=== PATIENT | male | born 1975 | race Caucasian/White ===

== ENCOUNTER 2019-06-19 08:36 | Emergency (ER) | payer OTHER ==
--- NOTE | 2019-06-19 08:49 | PDOC ---
History of Present Illness - General Chief Complaint: Pain Stated Complaint: RIGHT SHOULDER,RIGHT CHEST AND ABDOMINAL PAIN Time Seen by Provider: 06/19/19 08:49 - History of Present Illness Initial Comments: 06/19/19 09:24 Pt presents to the ED complaining of L shoulder pain, which has been chronic for more than one year, and q 4 day history of epigastric pain radiating to the left shoulder. Denies fever or vomiting, but does complain of nausea. States that pain is worse with eating "heavy meals". He us unable to describe the pain. Currently he has minimal pain. 06/19/19 10:15 Past History - Past Medical History Allergies/Adverse Reactions: Allergies Allergy/AdvReac Type Severity Reaction Status Date / Time No Known Allergies Allergy Verified 06/19/19 08:52 Home Medications: Ambulatory Orders Famotidine [Pepcid] 20 mg PO BID #60 tablet 06/19/19 Review of Systems - Review of Systems Able to Perform ROS?: Yes Is the patient limited Citizen [place] proficient: No Constitutional: No: Symptoms Reported, See HPI, Chills, Diaphoresis, Fever, Loss of Appetite, Malaise, Night Sweats, Weakness, Weight Stable, Unintentional Wgt. Loss, Unexplained wgt Loss, Other Respiratory: No: Symptoms reported, See HPI, Cough, Orthopnea, Shortness of Breath, SOB with Exertion, SOB at Rest, Stridor, Wheezing, Productive cough, Hemoptysis, Other Cardiac (ROS): No: Symptoms Reported, See HPI, Chest Pain, Edema, Irregular Heart Rate, Lightheadedness, Palpitations, Syncope, Chest Tightness, Other ABD/GI: Yes: Symptoms Reported, Nausea. No: See HPI, Abdominal Distended, Abd. Pain w/ defecation, Blood Streaked Bowels, Constipated, Diarrhea, Difficulty Swallowing, Poor Appetite, Poor Fluid Intake, Rectal Bleeding, Vomiting, Indigestion, Abdominal cramping, Tarry Stools, Other : No: Symptoms Reported, See HPI, Burning, Dysuria, Discharge, Frequency, Flank Pain, Hematuria, Incontinence, Pain, Urgency, Testicular Mass, Testicular Swelling, Lesions, Testicular Pain, Other Musculoskeletal: No: Symptoms Reported, See HPI, Back Pain, Gout, Joint Pain, Joint Swelling, Muscle Pain, Muscle Weakness, Neck Pain, Joint Stiffness, Other All Other Systems: Reviewed and Negative *Physical Exam - Physical Exam 06/19/19 10:25 gen: alert, NAD CV: rrr no m/r/g pulm: CTA b/l Abdomen: soft, non tender, nond distended without guarding or rebound Ext: No edema or tenderness Neuro: alert and oriented x 3, normal mood and affect, CN grossly intact, ambulatory with normal gait. ED Treatment Course - LABORATORY CBC & Chemistry Diagram: 06/19/19 09:25 06/19/19 09:25 Medical Decision Making - Medical Decision Making 06/19/19 10:27 Pt presents to the ED complaining of epigastric pain. Labs checked to evaluate for biliary disease and are negative. Will discharge home with follow up with internal medicine clinic. Discharge - Discharge Information Problems reviewed: Yes Clinical Impression/Diagnosis: Epigastric pain Condition: Good Disposition: HOME - Admission No - Follow up/Referral Referrals: Paulo Pardo MD [Staff Physician] - - Patient Discharge Instructions Patient Printed Discharge Instructions: DI for Epigastric Pain Additional Instructions: You came to the ED for nausea and epigastric pain. We did testing for the gallbladder and liver which was normal. I think the pain was caused by inflammation in the stomach--you should return to the ED for worsening pain. I have given you a referral to the internal medicine clinic. - Post Discharge Activity
[2019-06-19 08:53] VITALS: BP 151/97; PULSE 78; TEMP 98.1; BMI 36.5
[2019-06-19] MEDS ORDERED: MAG HYDROX/AL HYDROX/SIMETH -MYLANTA- ORAL SUSPENSION PO ONE (08:59)
[2019-06-19] MEDS ORDERED: FAMOTIDINE 20 MG TABLET PO ONE (08:59)
[2019-06-19] MEDS ORDERED: MAG HYDROX/AL HYDROX/SIMETH 30 ML UNIT-DOSE CUP ONE (09:01)
[2019-06-19] MEDS ORDERED: FAMOTIDINE 20 MG TABLET ONE (09:01)
[2019-06-19 09:44] LABS: BASO % 0.6 % (0-2.0); EOS % 1.4 % (0-4.5); HEMATOCRIT 48.1 % (35.4-49); HEMOGLOBIN 15.9 GM/dl (11.7-16.9); LYMPH % 35.5 % (8-40); MCH 30.4 pg (25.7-33.7); MCHC 33.1 g/dl (32.0-35.9); MEAN CELL VOLUME 91.7 fl (80-96); MEAN PLT VOLUME 9.2 fl (7.5-11.1); MONO % 7.9 % (3.8-10.2); NEUT % 54.6 % (42.8-82.8); PLATELET COUNT 253 K/MM3 (134-434); RBC 5.24 M/mm3 (4.00-5.60); RDW 12.4 % (11.9-15.9); WHITE BLOOD COUNT 6.1 K/mm3 (4.0-10.8)
[2019-06-19 09:52] LABS: ALBUMIN 4.3 g/dl (3.4-5.0); BILIRUBIN,TOTAL 0.7 mg/dl (0.2-1); CALCIUM 8.9 mg/dl (8.5-10); CREATININE 0.7 mg/dl (0.55-1.3); POTASSIUM 3.8 mmol/L (3.5-5.1); TOT PROT 7.5 g/dl (6.4-8.2)
== END 2019-06-19 10:40 | disposition home or self-care (01) ==
LOC: FER 08:36
DX: R10.13 Epigastric pain (principal)
CPT/HCPCS: 36415; 80053; 85025; 99283-25

== ENCOUNTER 2020-03-03 10:00 | Emergency (ER) | payer OTHER ==
[2020-03-03 10:06] VITALS: TEMP 98.2; BMI 35.4
--- NOTE | 2020-03-03 10:36 | PDOC ---
History of Present Illness - General Chief Complaint: Chest Pain Stated Complaint: CHEST PAIN Time Seen by Provider: 03/03/20 10:04 - History of Present Illness Initial Comments: 03/03/20 11:06 44yo male with pmhx of gerd, without a pmd presents for a month of R sided cp. Pt states his R parasternal region hurts. 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 Pt denies pleuritic cp. Denies assoc sob. States he does sometimes feel a burning sensation and nausea coming up his chest. Pt denies leg swelling, calf cramping. Pt denies recent travel. Pt states he has been taking tylenol at night, which has helped his pain. Pt denies v/d. No abd pain. No urinary complaints. No back pain. No assoc with food with the pain. Pt with reproducible anterior right chest wall pain that hurts when palpated. No rash. Past History - Medical History Allergies/Adverse Reactions: Allergies Allergy/AdvReac Type Severity Reaction Status Date / Time No Known Allergies Allergy Verified 03/03/20 10:02 Home Medications: Ambulatory Orders NK [No Known Home Medication] 03/03/20 COPD: No GI Disorders: Yes (acid reflux) - Psycho-Social/Smoking History Smoking History: Never smoked Have you smoked in the past 12 months: No Information on smoking cessation initiated: No - Substance Abuse Hx (Audit-C & DAST Scrn) How often the patient has a drink containing alcohol: Never Score: In Men: 4 or > Positive; In Women: 3 or > Positive: 0 Screen Result (Pos requires Nsg. Audit-10AR): Negative In the last yr the pt used illegal drug/Rx for NonMed reason: No Score: Yes response is considered Positive: 0 Screen Result (Positive result requires Nsg. DAST-10): Negative Review of Systems - Review of Systems Able to Perform ROS?: Yes Is the patient limited [place] proficient: No Constitutional: No: Chills, Fever HEENTM: No: Nose Congestion, Throat Pain Respiratory: No: Cough, Shortness of Breath Cardiac (ROS): Yes: Chest Pain. No: Edema, Lightheadedness, Palpitations, Syncope, Chest Tightness ABD/GI: Yes: Nausea, Other (epigastric burnin). No: Diarrhea, Vomiting, Abdomi nal cramping : No: Burning, Dysuria Musculoskeletal: No: Back Pain Integumentary: No: Rash Neurological: No: Headache, Numbness, Paresthesia All Other Systems: Reviewed and Negative *Physical Exam - Vital Signs Last Vital Signs Temp Pulse Resp BP Pulse Ox 98.2 F 67 18 128/83 99 03/03/20 10:00 03/03/20 10:00 03/03/20 10:00 03/03/20 10:24 03/03/20 10:00 - Physical Exam General Appearance: Yes: Nourished, Appropriately Dressed. No: Apparent Distress HEENT: positive: EOMI, Normal Voice Neck: positive: Supple Respiratory/Chest: positive: Chest Tender (R parasternal anterior chest wall ttp that reproduces the pain), Lungs Clear, Normal Breath Sounds. negative: Re spiratory Distress Cardiovascular: positive: Regular Rhythm, Regular Rate, S1, S2. negative: Edema Gastrointestinal/Abdominal: positive: Soft, Other (no epigastric ttp). negative: Guarding, Rebound, Tenderness Male Genitalia: negative: CVAT Musculoskeletal: positive: Normal Inspection Extremity: positive: Normal Inspection, Normal Range of Motion, Other (ambulatory in the ER with a steady gait). negative: Swelling, Calf Tenderness Integumentary: positive: Normal Color, Dry, Warm. negative: Rash Neurologic: positive: Fully Oriented, Alert, Normal Mood/Affect, Normal Response Heart Score/ECG Review - ECG Intrepretation Comment:: 03/03/20 11:13 sinus at 68, nl axis, nl interval, t wave inversions III which are nonspecific, no acute st/t wave findings ED Treatment Course - LABORATORY CBC & Chemistry Diagram: 03/03/20 10:45 03/03/20 10:45 Medical Decision Making - Medical Decision Making 03/03/20 11:15 a/p: 44yo male with atypical R sided anterior chest wall ttp and epigastric burning -suspect gerd and MSK pain -however, pt does not have a doctor, does not follow up for routine eval -1m of the pain -will send labs, ekg, cxr, trop x2 -will medicate with toradol for anterior chest wall pain and GI meds -will monitor and reassess 03/03/20 11:24 trop neg labs reviewed and stable 03/03/20 11:26 cxr clear 03/03/20 12:21 pt states he feels better discussed labs, xray and ekg pt states pain improved after meds pending repeat trop, if trop neg then stable for dc to home 03/03/20 14:46 repeat trop neg stable for dc to home Discharge - Discharge Information Problems reviewed: Yes Clinical Impression/Diagnosis: Chest pain Condition: Stable Disposition: HOME - Admission No - Follow up/Referral Referrals: Paulo Pardo MD [Staff Physician] - - Patient Discharge Instructions Patient Printed Discharge Instructions: DI for Atypical Chest Pain Additional Instructions: Please take tylenol or motrin as needed for pain. Please make an appointment to see your PMD this week. Please return to the ER with any further concerns or complaints. - Post Discharge Activity
[2020-03-03] MEDS ORDERED: SODIUM CHLORIDE 0.9% 1000 ML INFUS.BAG IV ONE (10:37)
[2020-03-03] MEDS ORDERED: MAG HYDROX/AL HYDROX/SIMETH 30 ML UNIT-DOSE CUP PO ONE (10:37)
[2020-03-03] MEDS ORDERED: KETOROLAC TROMETHAMINE 15 MG/ML VIAL IVPUSH ONE (10:37)
[2020-03-03] MEDS ORDERED: ONDANSETRON 4 MG/2 ML VIAL IVPUSH ONE (10:37)
[2020-03-03] MEDS ORDERED: MAG HYDROX/AL HYDROX/SIMETH 30 ML UNIT-DOSE CUP ONE (10:40)
[2020-03-03] MEDS ORDERED: ONDANSETRON 4 MG/2 ML VIAL ONE (10:40)
[2020-03-03] MEDS ORDERED: KETOROLAC TROMETHAMINE 15 MG/ML VIAL ONE (10:40)
[2020-03-03 11:11] LABS: BASO % 3.1 % (0-2.0); EOS % 0.9 % (0-4.5); HEMATOCRIT 48.6 % (35.4-49); HEMOGLOBIN 16.1 GM/dl (11.7-16.9); LYMPH % 26.1 % (8-40); MCH 30.2 pg (25.7-33.7); MCHC 33.1 g/dl (32.0-35.9); MEAN CELL VOLUME 91.4 fl (80-96); MEAN PLT VOLUME 8.5 fl (7.5-11.1); MONO % 6.5 % (3.8-10.2); NEUT % 63.4 % (42.8-82.8); PLATELET COUNT 280 K/MM3 (134-434); RBC 5.32 M/mm3 (4.00-5.60); RDW 11.8 % (11.9-15.9); WHITE BLOOD COUNT 7.5 K/mm3 (4.0-10.8)
[2020-03-03 11:12] LABS: ALBUMIN 4.2 g/dl (3.4-5.0); BILIRUBIN,TOTAL 0.7 mg/dl (0.2-1); CALCIUM 9.2 mg/dl (8.5-10); CREATININE 0.8 mg/dl (0.55-1.3); POTASSIUM 4.2 mmol/L (3.5-5.1); TOT PROT 7.5 g/dl (6.4-8.2)
[2020-03-03 11:17] LABS: INR 1.14 (0.82-1.09); PROTHROMBIN TIME (PATIENT) 12.7 SEC (10.2-13.0)
[2020-03-03 15:02] VITALS: BP 123/70; PULSE 72
--- NOTE | 2020-03-03 18:53 | EKG ---
Test Reason : Blood Pressure : / mmHG Vent. Rate : 068 BPM Atrial Rate : 068 BPM P-R Int : 140 ms QRS Dur : 094 ms QT Int : 390 ms P-R-T Axes : 007 023 003 degrees QTc Int : 414 ms NORMAL SINUS RHYTHM LATERAL INFARCT POSTERIOR INFARCT ABNORMAL ECG Confirmed by MD KIRK, CLAUDETTE ([id number]) on 03/03/2020 6:52:32 PM Referred By: HIMANSHU HINOJOSA Confirmed By:CLAUDETTE BRADLEY MD
== END 2020-03-03 15:05 | disposition home or self-care (01) ==
LOC: FER 10:00
PROC: 3E033GC Introduction of Other Therapeutic Substance into Peripheral Vein, Percutaneous Approach (ICD-10-PCS; principal; 2020-03-03)
DX: R07.9 Chest pain, unspecified (principal)
CPT/HCPCS: 36415; 71046-TC-FY; 80053; 82550; 82553; 84484; 85025; 85610; 85730; 93005; 99285-25

== ENCOUNTER 2023-06-10 08:42 | Emergency (ER) | payer OTHER ==
[2023-06-10 09:13] VITALS: BP 145/92; PULSE 83; RESP 16; TEMP 98; BMI 36.5
[2023-06-10] MEDS ORDERED: IBUPROFEN 400 MG TABLET (FP) PO ONE ×2 (10:13→10:15)
== END 2023-06-10 10:21 | disposition home or self-care (01) ==
LOC: FER 08:42
DX: S43.401A Unspecified sprain of right shoulder joint, initial encounter (principal); X50.9XXA Other and unspecified overexertion or strenuous movements or postures, initial encounter; Y93.89 Activity, other specified; Y92.009 Unspecified place in unspecified non-institutional (private) residence as the place of occurrence of the external cause
CPT/HCPCS: 72050-TC-FY; 73030-TC-RT-FY; 99283-25

== ENCOUNTER 2024-05-26 15:27 | Emergency (ER) | payer OTHER ==
[2024-05-26 15:49] VITALS: BP 144/104; PULSE 75; RESP 18; TEMP 98.1; BMI 36.0
[2024-05-26] MEDS ORDERED: KETOROLAC TROMETHAMINE 30 MG/1 ML VIAL ONE (16:05)
[2024-05-26] MEDS: SODIUM CHLORIDE 1,000 ML IV STA (16:17)
[2024-05-26] MEDS: KETOROLAC TROMETHAMINE 30 MG/1 ML VIAL IVPUSH ONE (16:17)
[2024-05-26 16:44] LABS: HEMOGLOBIN 15.7 G/dL (11.7-16.9); MCH 30.3 pg (25.7-33.7); MCHC 33.3 g/dl (32.0-35.9); MEAN PLT VOLUME 9.1 fl (7.5-11.1); PLATELET COUNT 227.8 10^3/uL (134-434); RBC 5.16 10^6/uL (4.00-5.60); RDW 13.2 % (11.9-15.9); WHITE BLOOD COUNT 11.5 10^3/uL (4.0-10.8)
[2024-05-26 16:54] LABS: ALBUMIN 4.5 g/dl (3.4-5.0); BILIRUBIN,TOTAL 0.5 mg/dl (0.2-1); TOT PROT 7.3 g/dl (6.4-8.2)
[2024-05-26 17:14] LABS: CALCIUM OXALATE CRYSTALS FEW /hpf (NONE SEEN)
[2024-05-26 17:37] LABS: PLATELET ESTIMATE ADEQUATE
== END 2024-05-26 17:57 | disposition home or self-care (01) ==
LOC: FER 15:27
PROC: 3E0333Z Introduction of Anti-inflammatory into Peripheral Vein, Percutaneous Approach (ICD-10-PCS; principal; 2024-05-26)
PROC: 3E0337Z Introduction of Electrolytic and Water Balance Substance into Peripheral Vein, Percutaneous Approach (ICD-10-PCS; 2024-05-26)
DX: N20.0 Calculus of kidney (principal); R10.31 Right lower quadrant pain
CPT/HCPCS: 36415; 80053; 81003; 81015; 83690; 85027; 87086; 87186; 99284-25

== ENCOUNTER 2024-05-29 10:32 | Emergency (ER) | payer OTHER ==
[2024-05-29 10:44] VITALS: PULSE 68; RESP 18; TEMP 98.2; BMI 36.0
[2024-05-29 11:38] LABS: EPITHELIAL CELLS 0-5 /hpf
[2024-05-29] MEDS ORDERED: KETOROLAC TROMETHAMINE 30 MG/1 ML VIAL ONE (11:51)
[2024-05-29] MEDS: KETOROLAC TROMETHAMINE 30 MG/1 ML VIAL IM ONE (11:55)
[2024-05-29 13:04] VITALS: BP 137/83
== END 2024-05-29 13:12 | disposition home or self-care (01) ==
LOC: FER 10:32
PROC: 3E0133Z Introduction of Anti-inflammatory into Subcutaneous Tissue, Percutaneous Approach (ICD-10-PCS; principal; 2024-05-29)
DX: N20.0 Calculus of kidney (principal); I10 Essential (primary) hypertension; R10.9 Unspecified abdominal pain; R31.9 Hematuria, unspecified; R11.0 Nausea; R61 Generalized hyperhidrosis
CPT/HCPCS: 76775-TC; 81003; 81015; 99284-25

== ENCOUNTER 2025-02-22 21:17 | Emergency (ER) | payer OTHER ==
[2025-02-22 21:52] VITALS: BP 157/109; PULSE 83; RESP 16; TEMP 98.4; BMI 36.0
[2025-02-22] MEDS ORDERED: ACETAMINOPHEN 500 MG TABLET (FP) ONE (22:02)
[2025-02-22] MEDS: ACETAMINOPHEN 500 MG TABLET (FP) PO ONE (22:04)
== END 2025-02-22 22:43 | disposition home or self-care (01) ==
LOC: FER 21:17
DX: M25.561 Pain in right knee (principal)
CPT/HCPCS: 73562-TC-RT-FY; 99283-25